=== PATIENT | male | born 1990 | race Caucasian/White ===

== ENCOUNTER 2023-05-08 08:57 | Outpatient (AMB) | payer OTHER, SELFPAY ==
[2023-05-08 08:55] VITALS: BP 130/70; PULSE 94; RESP 20; O2SAT 98
--- NOTE | 2023-05-08 08:55 | A.OFFVISCC_ITS ---
Intake Vital Signs 05/08/23 08:55 BP 130/70 Blood Pressure Location Rt radial Position Sitting Respiration 20 Pulse 94 Pulse Source Pulse Oximeter Pulse Oximetry (%) 98 Intake Visit Reasons: Walk in Allergies No Known Allergies Allergy (Verified 05/08/23 09:42) HPI Walk in HPI Details Patient presents as a walk in for intake and evaluation of alcohol use. He reports being in recovery from alcohol use for 5 years, until November 2022 when he started to drink again. He reports drinking 4-5 nips of fireball daily and occasionally a beer or two Last drink was 2 days ago. Denies any withdrawal sx, aside from anxiety Denies nausea, vomiting, gerd, abdominal pain MCCARTHY Hx: -reports drinking started in high school and progressed into college -denies any other substance use aside fr om marijuana and occasional mushrooms (none recently) -denies any history of treatment, includ ing RACHEL Hx: -therapy weekly - medications prescribed by PCP office -denies any hx of psychiatric admission Social Hx: -working side jobs, while also working a t a [employer] -single -denies any legal issues Medical Hx: -denies any chronic medical issues -engaged in care with PCP Patient reports his goal is to continue abstaining from alcohol He identifies a strong support system and overall knowledge about coping strategies that are helpful to him His anxiety is a major precipitant/trigger to his ongoing alcohol use. Review of Systems Const Reports as per HPI Physical Exam Vital Signs: Last Vital Signs Pulse 94 05/08/23 08:55 Resp 20 05/08/23 08:55 BP 130/70 05/08/23 08:55 Pulse Ox 98 05/08/23 08:55 Const General: cooperative, healthy appearing and anxious Nutritional Appearance: average body habitus Orientation/consciousness: patient oriented x3 Limitations: no limitations Neuro General: patient oriented x3 Psych Appearance: grossly normal Speech and movement: Normal speech and movement present Affect: Anxious affect present and Other affect and mood findings present Attitude: cooperative Assessment & Plan Assessment & Plan (1) Alcohol use disorder, moderate, dependence: Code(s): F10.20 - Alcohol dependence, uncomplicated Plan: * agreeable to starting Naltrexone--25mg X3 days then increase to full tab daily * Gabapentin taper--just given that he has been drinking daily for several months. Reduce risk of seizure and early withdrawal sx management * reviewed indications for both medications, side effects and dosing * patient has upcoming appt with his PCP who has mentioned starting Naltrexone in the past--he will likely continue treatment with her ongoing * encouraged to call office with any questions or concerns * reminded of risk associated with drinking and taking gabapenting in particular Medications: New naltrexone take 1/2 tab daily then increase to one tab daily 50 mg PO DAILY 60 tabs 0RF naltrexone take 1/2 tab daily for 3 days then increase to one tab daily 50 mg PO DAILY 60 tabs 0RF gabapentin 300 mg orally; Day 1: one cap every 8 hours. Day 2: one cap every 12 hours. Day 3: one cap at bedtime 7 caps 0RF Coding Level of Care Code Est Pt Level 4 (80001) Diagnoses Alcohol use disorder, moderate, dependence F10.20
== END 2023-05-08 09:54 | disposition home or self-care (01) ==
PROVIDERS: Visit Provider Nurse Practitioner Psychiatric/Mental Health
DX: F10.20 Alcohol dependence, uncomplicated (principal)
CPT/HCPCS: 99214

== ENCOUNTER → 2023-05-08 08:57 | Outpatient (BNVA) | payer OTHER, SELFPAY | PROVIDERS: Visit Provider Nurse Practitioner Psychiatric/Mental Health ==

== ENCOUNTER 2023-05-14 13:14 | Outpatient (AMB) | payer OTHER, SELFPAY ==
--- NOTE | 2023-05-14 14:32 | A.OFFPSYCH_ITS ---
Intake Intake Visit Reasons: depression Allergies No Known Allergies Allergy (Verified 05/08/23 09:42) HPI- Psychiatric Chief Complaint: depression HPI Narrative: The patient is a 32-year-old single male with a history of chronic dysphoria anxiety who came at the encouragement of family members. This is also coming in the context of alcohol use disorder which accelerated over the past year after a breakup with his girlfriend. The patient was started on naltrexone he was given a gabapentin taper he reportedly had been drinking daily for an extended period of time at the time comes in now he states he had sober for about a week he had been in recovery from alcohol for about 5 years until November 2022. The patient moved in with his mother and stepmother. He had a particularly difficult time after the break up of his girlfriend of 5 years about a year or so ago and he had been sober from alcohol until the break-up. Should also be noted that the patient is a fairly regular user of marijuana on daily basis and works for a [employer] unclear lower. Patient also reports chronic issues completing tasks He complains of occasional panic attacks and some periods of intense sadness and dysphoria difficulty functioning though his current PHQ-9 is an 11 although it is described as very difficult his JESSICA is elevated at 19. It appears that he is girlfriend became quite isolated and depressed during COVID Patient reports chronic difficulties completing tasks he has been Adderall he does feel be somewhat helpful a relatively low dose 10 mg daily. He has had concerns at times that stimulants might contribute to anxiety. He has tapered off of gabapentin. He does go to occasional a meetings and he has been going to psychotherapy for the past 6 months. Patient has most recently been prescribed medication by Alesia Meade physician assistant spa manager in family practice in [place] Past Psychiatric History: Patient reports some chronic problems with anxiety and dysphoria. He states he can become intensely emotional and sensitive to other people's feelings. He had difficulties in school attention comprehension comple ting tasks reading processing issues he did graduate with a safety degree from [employer] His 1st treatment was his year of high school when he had been on fluoxetine secondary to anxiety was not clear if it was helpful Mental Status Exam Mental Status Exam Patient Appearance: Well Grooomed Patient Orientation: Person, Place, Time and Situation Level of Consciousness: Awake and Appropriate Patient Behavior: Appropriate Behavior Comments: Patient did become more anxious and somewhat reactive when discussing issues related to brain functioning and history of learning disabilities and how this may be playing some role Mood Description: Depressed and Apprehensive Affect Description: Appropriate, Constricted and Anxious Patient Cognition Impaired: No Ability to Follow Directions: Good Speech Pattern: Clear Memory Description: Intact Hallucinations: None Delusions: Not Present Thought Process: Intact and Goal Oriented Thought Content: positive for Goal Oriented, positive for Preoccupation, negative for Suicidal Ideation or negative for Homicidal Ideation Depressive Symptoms: Increased Anxiety, Increased Irritability, Hopelessness, Increased Fatigue, Loss of Energy and Difficulty Concentrating Judgement and Insight: Insight judgment seem somewhat variable at 1st engaged later had difficulty when discussing possibility of neuropsych testing was given Amen ADD screen Unclear if any verbal processing difficult Results Reviewed Results Reviewed: No labs presently in chart Assessment and Plan Assessment & Plan (1) Alcohol use disorder, moderate, dependence: Status: Acute Code(s): F10.20 - Alcohol dependence, uncomplicated (2) Generalized anxiety disorder with panic attacks: Status: Acute Code(s): F41.1 - Generalized anxiety disorder; F41.0 - Panic disorder [episodic paroxysm al anxiety] (3) Major depressive disorder, recurrent, moderate: Status: Acute Code(s): F33.1 - Major depressive disorder, recurrent, moderate (4) History of learning disability as a child: Status: Acute Code(s): Z86.59 - Personal history of other mental and behavioral disorders Plan The patient has chronic anxiety in dysphoria worsened over the past year or so. Is unclear at this time the extent of role alcohol has played in the patient's chronic anxiety dysphoria. Would become clear after a period of sobriety. Also unclear what role marijuana is playing in doing that also at this time. He does feel that he has been regrouping to some degree better able to function there is a strong family history of depression and anxiety. In addition to levels of chronic anxiety and dysphoria this is probably been complicated by what appear to be learning disabilities relating to really reading comprehension and math. This probably had some effects on the patient's development he was able to graduate college she does enjoy playing music unclear if has hopeful alcohol use. Patient has difficulties with concentration motivation intermittently he is on low-dose Adderall would strongly urge when the patient is ready to see if he would be willing to do a taper off of marijuana which chronic daily regular use generally has mostly not been shown to be helpful for chronic anxiety and m ay contribute and certainly the potential a difficulty in regards to motivation attention concentration the patient is learning in psychotherapy strategies to manage anxiety. Athletics daily exercise yoga meditation would most likely be very helpful patient is also in a stressful situation living between 2 houses feeling at times like a failure with a long-term relationship that is unclear if it can be rekindled trying get labs from PCP patient given Rene ADD scream which can be helpful in checking different areas of functioning. Neuro psych testing might be helpful in having the patient better understanding how his brain functions to not contribute to step self-esteem issues but to perhaps help with strategies that might improve his life and functioning consider Wellbutrin for augmentation of depression in the context of ADD consider atomoxetine which may also be helpful for depression anxiety and ADD symptoms. Trying get consent to speak to therapist The [employer] headband may also be very helpful for training concentration and meditation practice which would be helpful for both anxiety and attentional issues Availability of any prior psychological testing would be very helpful Follow-up 4 weeks Counseling and coordination of Care Pt. Self Management counselin Step program, Breathing, Sleep hygiene and Behavior activation Medication management counseling: Effectiveness and Side effects Diagnosis and Prognosis Counseling: Accuracy of diagnosis, Impact of diagnosis on life functions, Problematic behaviors secondary to diagnosis and Adequacy of current interventions Details: I spent [60] minutes reviewing the record, seeing the patient and documenting in the medical record. Counseling provided to the patient/caregiver as outlined below. Addressed patient/caregiver concerns regarding current medication regime including effective adherence. Addressed patient/caregiver concerns regarding diagnosis and prognosis including accuracy of diagnosis, prognosis over time, impact of diagnosis. Addressed patient/caregiver concerns regarding impact of recent stressors. [facility] [place] [place] Medical History (Updated 06/03/23 @ 18:19 by Rusty Dye MD) Major depressive disorder, recurrent, moderate Generalized anxiety disorder with panic attacks Social History: The patient's father has a significant history of agoraphobia grandparents had significant issues with substance abuse and depression mother's suffered from depression. The patient does have a sister The patient grew up mostly in [place] was in [place] till 4 years old. His biological father is in [place]. He was raised mostly by his mother and stepmother in [place] he states that this had generally not been a problem for him nor was it highly on usual when he was growing up. The patient was with his girlfriend of 5 years they broke up about a year ago and are looking at potentially reconciling. They do not have any children. 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 [place] he did have a 504 plan in school Substance History: Patient has a significant history of alcoholism would have blackouts and falls started drinking late high school college got sober 5 years ago generally without supportive recovery community he has a regular marijuana smoker up to a few times a day he does not see this as a problem Coding Level of Care Code Psych Diag Eval (87595) Diagnoses Alcohol use disorder, moderate, dependence F10.20 Generalized anxiety disorder with panic attacks F41.1; F41.0 Major depressive disorder, recurrent, moderate F33.1 History of learning disability as a child Z86.59
== END 2023-05-14 15:38 | disposition home or self-care (01) ==
PROVIDERS: PCP Physician Assistant; Visit Provider Psychiatry & Neurology Psychiatry
DX: F10.20 Alcohol dependence, uncomplicated (principal); F41.1 Generalized anxiety disorder; F41.0 Panic disorder [episodic paroxysmal anxiety]; F33.1 Major depressive disorder, recurrent, moderate; Z86.59 Personal history of other mental and behavioral disorders
CPT/HCPCS: 90791

== ENCOUNTER → 2023-05-14 13:14 | Outpatient (BNVA) | payer OTHER, SELFPAY | PROVIDERS: PCP Physician Assistant; Visit Provider Psychiatry & Neurology Psychiatry ==

== ENCOUNTER 2023-07-27 15:22 | Outpatient (AMB) | payer MEDICAID, SELFPAY ==
--- NOTE | 2023-07-27 15:27 | MHC.AM.SUB ---
Intake Visit Reasons: Follow up Allergies No Known Allergies Allergy (Verified 05/08/23 09:42) HPI HPI Follow up: Details: Patient presents for follow up and to re-establish care He states he had been abstaining from alcohol for over 2 months and approx 3 weeks started drinking again He reports drinking approx 5 fireball nips daily Last drink was on Thursday Gabapentin sent in over the weekend by this typewriter assembly and parts inspector which patients reports was helpful with anxiety Prior to staring drinking, he reports that he was attending meetings at least 5 days per week and found them very beneficial He identified ongoing relationship issues as an ongoing stressor and contributed to drinking. Current sx: He reports his last drink was Thursday and while he is feeling clearer each day, his anxiety, racing thoughts and ruminating is at times overwhelming. He is not ruminating on any specific topic, but has difficulty refocusing once he starts Frequent negative self talk, feelings of low self worth increased shame and guilt Decreased appetite Denies thoughts of self harm or suicidal ideation No change to previous medications No changes to medical history Still engaged with his therapist, although he recently missed an appt [facility] Medical History (Updated 06/03/23 @ 18:19 by Rusty Dye MD) Major depressive disorder, recurrent, moderate Generalized anxiety disorder with panic attacks Review of Systems Const Reports as per HPI Physical Exam Const General: cooperative and anxious Nutritional Appearance: thin Orientation/consciousness: patient oriented x3 Limitations: no limitations Neuro General: patient oriented x3 Psych Appearance: well kempt Speech and movement: Clear speech present Affect: Anxious affect present Attitude: cooperative Thought process: Circumstantial thought process present Thought content: Depressive thoughts present Insight: Fair insight present (Psych) Judgement: Good judgement present (Psych) Assessment & Plan Assessment & Plan (1) Major depressive disorder, recurrent, moderate: Code(s): F33.1 - Major depressive disorder, recurrent, moderate Category: Medical Plan: add Abilify 2mg daily --reviewed medication, dosing, side effects and goals of treatment encouraged to call office with any questions or concerns (2) Alcohol use disorder, moderate, dependence: Code(s): F10.20 - Alcohol dependence, uncomplicated Category: Medical Plan: encouraged recovery supports discussed IOP as an option in the near future will restart naltrexone after next visit (3) Generalized anxiety disorder with panic attacks: Code(s): F41.1 - Generalized anxiety disorder; F41.0 - Panic disorder [episodic paroxysmal anxiety] Category: Medical Plan: continue gabapentin PRN as he reports this is helpful discussed deep breathing strategies follow up 2 wks telehealth Medications: New aripiprazole (Abilify) 2 mg PO DAILY 30 tabs 0RF
== END 2023-07-27 16:19 | disposition home or self-care (01) ==
PROVIDERS: PCP Physician Assistant; Visit Provider Nurse Practitioner Psychiatric/Mental Health
DX: F10.20 Alcohol dependence, uncomplicated (principal); F33.1 Major depressive disorder, recurrent, moderate
CPT/HCPCS: 99214

== ENCOUNTER → 2023-07-27 15:22 | Outpatient (BNVA) | payer OTHER, SELFPAY | PROVIDERS: PCP Physician Assistant; Visit Provider Nurse Practitioner Psychiatric/Mental Health | DX: F10.20 Alcohol dependence, uncomplicated (principal); F33.1 Major depressive disorder, recurrent, moderate; F41.1 Generalized anxiety disorder; F43.0 Acute stress reaction | CPT/HCPCS: 99212 ==

== ENCOUNTER 2023-08-12 11:26 | Outpatient (AMB) | payer MEDICAID, SELFPAY ==
--- NOTE | 2023-08-12 11:35 | A.OFFVISCC_ITS ---
Intake Visit Reasons: MAT Tele Allergies No Known Allergies Allergy (Verified 05/08/23 09:42) [facility] MAT Tele: Details: Patient presents for follow up via telehealth Taking Abilify in AM --tolerating dose Intitiallt reporting that he was experiencing irritability and anxiety, however through processing able to accept that some of these feelings were warranted given the situation. He continues to abstain from alcohol (3 weeks) Depression improving, motivation improving played the [employer] recently which he finds therapeutic continues to attend meetings Denies any side effects related to medications Reconnected with his therapist and will be seeing them this week [facility] Medical History (Updated 06/03/23 @ 18:19 by Rusty Dye MD) Major depressive disorder, recurrent, moderate Generalized anxiety disorder with panic attacks Review of Systems Const Reports as per [facility] Telehealth Telehealth Telehealth Platform: Telephone Location of provider rendering services: practice address Location of patient: other Patient Identification confirmed using: Name, : Yes Telehealth method: voice only Patient verbally consented to treatment: Yes Patient verbally consented to billing insurance company: Yes Minutes spent on Phone/Video with Pt.: 35 Assessment & Plan Assessment & Plan (1) Alcohol use disorder, moderate, dependence: Code(s): F10.20 - Alcohol dependence, uncomplicated Category: Medical Plan: * relapse prevention discussion * follow up one month (2) Major depressive disorder, recurrent, moderate: Code(s): F33.1 - Major depressive disorder, recurrent, moderate Category: Medical Plan: * continue medications as prescribed * encouraged to continue with therapist regularly
== END 2023-08-12 12:53 | disposition home or self-care (01) ==
PROVIDERS: PCP Physician Assistant; Visit Provider Nurse Practitioner Psychiatric/Mental Health
DX: F10.20 Alcohol dependence, uncomplicated (principal); F33.1 Major depressive disorder, recurrent, moderate
CPT/HCPCS: 99214

== ENCOUNTER → 2023-08-12 11:26 | Outpatient (BNVA) | payer MEDICAID, SELFPAY | PROVIDERS: PCP Physician Assistant; Visit Provider Nurse Practitioner Psychiatric/Mental Health ==

== ENCOUNTER 2023-09-11 11:47 | Outpatient (AMB) | payer MEDICAID, SELFPAY ==
--- NOTE | 2023-09-11 11:48 | A.OFFVISCC_ITS ---
Intake Visit Reasons: MAT Tele Allergies No Known Allergies Allergy (Verified 05/08/23 09:42) HPI HPI MAT Tele: Details: Patient presents for follow up via telehealth Still working a lot Continues to abstain from drinking attending meetings at least once per week positive outlets-music, woodworking, switched adderall XR to amphetamine ER 10mg -tolerating cravings have decreased, mood improving PFSH Medical History (Updated 06/03/23 @ 18:19 by Rusty Dye MD) Major depressive disorder, recurrent, moderate Generalized anxiety disorder with panic attacks Review of Systems Const Reports as per HPI and Reports no additional complaints Telehealth Telehealth Telehealth Platform: Telephone Location of provider rendering services: practice address Location of patient: other Patient Identification confirmed using: Name, : Yes Telehealth method: voice only Patient verbally consented to treatment: Yes Patient verbally consented to billing insurance company: Yes Minutes spent on Phone/Video with Pt.: 20 Assessment & Plan Assessment & Plan (1) Alcohol use disorder, moderate, dependence: Code(s): F10.20 - Alcohol dependence, uncomplicated Category: Medical Plan: * relapse prevention discussion (2) Major depressive disorder, recurrent, moderate: Code(s): F33.1 - Major depressive disorder, recurrent, moderate Category: Medical Plan: * continue abilify and lexapro at current doses * follow up 4 weeks
== END 2023-09-11 12:49 | disposition home or self-care (01) ==
PROVIDERS: PCP Physician Assistant; Visit Provider Nurse Practitioner Psychiatric/Mental Health
DX: F10.20 Alcohol dependence, uncomplicated (principal); F33.1 Major depressive disorder, recurrent, moderate
CPT/HCPCS: 99214

== ENCOUNTER → 2023-09-11 11:47 | Outpatient (BNVA) | payer MEDICAID, SELFPAY | PROVIDERS: PCP Physician Assistant; Visit Provider Nurse Practitioner Psychiatric/Mental Health ==

== ENCOUNTER 2023-10-09 09:28 | Outpatient (AMB) | payer OTHER, SELFPAY ==
[2023-10-09 09:37] VITALS: BP 120/80; PULSE 88; RESP 19
--- NOTE | 2023-10-09 09:37 | MHC.AM.SUB ---
Vital Signs 10/09/23 09:37 BP 120/80 Blood Pressure Location Lt radial Position Sitting Respiration 19 Pulse 88 Pulse Source Pulse Oximeter Intake Visit Reasons: MAT Visit Allergies No Known Allergies Allergy (Verified 05/08/23 09:42) HPI HPI MAT Visit: Details: Patient presents for follow up Stopped going to meetings then tapered off no meetings for 2-3 weeks increased thoughts of drinking No alcohol for about 3 months ? katie is making him groggy [facility] Medical History (Updated 06/03/23 @ 18:19 by Rusty Dye MD) Major depressive disorder, recurrent, moderate Generalized anxiety disorder with panic attacks Review of Systems Const Reports as per HPI Physical Exam Vital Signs: Last Vital Signs Pulse 88 10/09/23 09:37 Resp 19 10/09/23 09:37 BP 120/80 10/09/23 09:37 Const General: cooperative and anxious Nutritional Appearance: thin Orientation/consciousness: patient oriented x3 Limitations: no limitations Neuro General: patient oriented x3 Psych Appearance: well kempt Speech and movement: Clear speech present Affect: Anxious affect present Attitude: cooperative Thought process: Circumstantial thought process present Thought content: Depressive thoughts present Insight: Fair insight present (Psych) Judgement: Good judgement present (Psych) Assessment & Plan Assessment & Plan (1) Alcohol use disorder, moderate, dependence: Code(s): F10.20 - Alcohol dependence, uncomplicated Category: Medical Plan: relapse prevention discussion will start attending meetings again discussed PRN use of Naltrexone (2) Major depressive disorder, recurrent, moderate: Code(s): F33.1 - Major depressive disorder, recurrent, moderate Category: Medical Plan: trial katie in the evenings if still groggy, will take a break and see how he feels follow up 4 weeks Medications: Refilled aripiprazole 2 mg PO DAILY 30 tabs 0RF
== END 2023-10-09 10:20 | disposition home or self-care (01) ==
PROVIDERS: PCP Physician Assistant; Visit Provider Nurse Practitioner Psychiatric/Mental Health
DX: F10.20 Alcohol dependence, uncomplicated (principal); F33.1 Major depressive disorder, recurrent, moderate
CPT/HCPCS: 99214

== ENCOUNTER → 2023-10-09 09:28 | Outpatient (BNVA) | payer OTHER, SELFPAY | PROVIDERS: PCP Physician Assistant; Visit Provider Nurse Practitioner Psychiatric/Mental Health | DX: F10.20 Alcohol dependence, uncomplicated (principal); F33.1 Major depressive disorder, recurrent, moderate | CPT/HCPCS: 99212 ==

== ENCOUNTER 2023-11-06 11:30 | Outpatient (AMB) | payer OTHER, SELFPAY ==
--- NOTE | 2023-11-06 14:36 | MHC.AM.SUB ---
Intake Visit Reasons: MAT Tele Allergies No Known Allergies Allergy (Verified 05/08/23 09:42) [facility] MAT Tele: Details: Patient presents for follow up via telehealth Reporting a challenging month. Struggling with increased thoughts of drinking and feeling like he is coming close to doing it Discussed mood --some improvement as he restarted Abilify and has been taking it consistently Would like a therapist --feels he has a lot he wants to work through and feels ready to engage. Frustration that he continues to feel the way he is related to alcohol Avoiding meetings--discussed Naltrexone and how it may be beneficial for the time being, patient agreeable. He has had it, but has not been taking it [facility] Medical History (Updated 06/03/23 @ 18:19 by Rusty Dye MD) Major depressive disorder, recurrent, moderate Generalized anxiety disorder with panic attacks Review of Systems Const Reports as per [facility] Telehealth Telehealth Telehealth Platform: Telephone Location of provider rendering services: practice address Location of patient: address on file Patient Identification confirmed using: Name, : Yes Telehealth method: voice only Patient verbally consented to treatment: Yes Patient verbally consented to billing insurance company: Yes Minutes spent on Phone/Video with Pt.: 30 Assessment & Plan Assessment & Plan (1) Alcohol use disorder, moderate, dependence: Code(s): F10.20 - Alcohol dependence, uncomplicated Category: Medical Plan: restart naltrexone relapse prevention discussion (2) Major depressive disorder, recurrent, moderate: Code(s): F33.1 - Major depressive disorder, recurrent, moderate Category: Medical Plan: continue medications therapy referral Medications: Changed From naltrexone take 1/2 tab daily for 3 days then increase to one tab daily 50 mg PO DAILY 60 tabs 0RF To naltrexone 50 mg PO DAILY 90 tabs 1RF
== END 2023-11-06 13:31 | disposition home or self-care (01) ==
PROVIDERS: PCP Physician Assistant; Visit Provider Nurse Practitioner Psychiatric/Mental Health
DX: F10.20 Alcohol dependence, uncomplicated (principal); F33.1 Major depressive disorder, recurrent, moderate
CPT/HCPCS: 99214

== ENCOUNTER → 2023-11-06 11:30 | Outpatient (BNVA) | payer OTHER, SELFPAY | PROVIDERS: PCP Physician Assistant; Visit Provider Nurse Practitioner Psychiatric/Mental Health ==

== ENCOUNTER 2023-12-04 09:04 | Outpatient (AMB) | payer OTHER, SELFPAY ==
--- NOTE | 2023-12-04 09:04 | A.OFFVISCC_ITS ---
Intake Visit Reasons: MAT Tele Allergies No Known Allergies Allergy (Verified 05/08/23 09:42) [facility] MAT Tele: Details: Patient presents for follow up via telehealth Reports mood is improved since last visit has reached out to therapist discussed medications, feels escitalopram is effective notices that he feels worse when he does not take it discussed other options--adjunct Wellbutrin patient agreeable [facility] Medical History (Updated 06/03/23 @ 18:19 by Rusty Dye MD) Major depressive disorder, recurrent, moderate Generalized anxiety disorder with panic attacks Review of Systems Const Reports as per [facility] Telehealth Telehealth Telehealth Platform: Telephone Location of provider rendering services: practice address Location of patient: other Patient Identification confirmed using: Name, : Yes Telehealth method: voice only Patient verbally consented to treatment: Yes Patient verbally consented to billing insurance company: Yes Minutes spent on Phone/Video with Pt.: 35 Assessment & Plan Assessment & Plan (1) Alcohol use disorder, moderate, dependence: Code(s): F10.20 - Alcohol dependence, uncomplicated Category: Medical Plan: * relapse prevention discussion (2) Major depressive disorder, recurrent, moderate: Code(s): F33.1 - Major depressive disorder, recurrent, moderate Category: Medical Plan: * continue lexapro * add wellbutrin 150mg QD--reviewed medication goals, dosing and side effects * follow up 2 weeks Medications: New bupropion HCl XL (Wellbutrin XL) 150 mg PO QAM 30 tabs 0RF Discontinued aripiprazole Discontinued Reason: Patient no longer taking 2 mg PO DAILY 30 tabs 0RF
== END 2023-12-04 09:39 | disposition home or self-care (01) ==
PROVIDERS: PCP Physician Assistant; Visit Provider Nurse Practitioner Psychiatric/Mental Health
DX: F10.20 Alcohol dependence, uncomplicated (principal); F33.1 Major depressive disorder, recurrent, moderate
CPT/HCPCS: 99214

== ENCOUNTER → 2023-12-04 09:04 | Outpatient (BNVA) | payer OTHER, SELFPAY | PROVIDERS: PCP Physician Assistant; Visit Provider Nurse Practitioner Psychiatric/Mental Health ==

== ENCOUNTER 2023-12-30 09:04 | Outpatient (AMB) | payer OTHER, SELFPAY ==
--- NOTE | 2023-12-30 09:07 | MHC.AM.SUB ---
Intake Visit Reasons: MAT Tele Allergies No Known Allergies Allergy (Verified 05/08/23 09:42) [facility] MAT Tele: Details: Patient presents for follow up via telehealth for AUD and depression Reports an up and down month --splitting from GF Trialled Wellbutrin for one day, did not like the way it felt Started seeing therapist --happy about this Reporting more routine, eating meals Reporting decreased motivation after work --discussed light therapy jeffrey with less sunshine Re: alcohol use, continues to abstain. Not yet attending meetings like he would like, but continues to be a goal for him Review of Systems Const Reports as per [facility] Telehealth Telehealth Telehealth Platform: Telephone Location of provider rendering services: practice address Location of patient: address on file Patient Identification confirmed using: Name, : Yes Telehealth method: voice only Patient verbally consented to treatment: Yes Patient verbally consented to billing insurance company: Yes Minutes spent on Phone/Video with Pt.: 20 Assessment & Plan Assessment & Plan (1) Alcohol use disorder, moderate, dependence: Code(s): F10.20 - Alcohol dependence, uncomplicated Category: Medical Plan: relapse prevention discussion (2) Major depressive disorder, recurrent, moderate: Code(s): F33.1 - Major depressive disorder, recurrent, moderate Category: Medical Plan: hold on any other trials--agreeable to evaluating mood with regular therapy Medications: Discontinued bupropion HCl XL (Wellbutrin XL) Discontinued Reason: Patient no longer taking 150 mg PO QAM 30 tabs 0RF
== END 2023-12-30 10:23 | disposition home or self-care (01) ==
LOC: HO.HCC 09:04
PROVIDERS: PCP Physician Assistant; Visit Provider Nurse Practitioner Psychiatric/Mental Health
DX: F10.20 Alcohol dependence, uncomplicated (principal); F33.1 Major depressive disorder, recurrent, moderate
CPT/HCPCS: 99214

== ENCOUNTER 2024-02-01 12:57 | Outpatient (AMB) | payer OTHER, SELFPAY ==
--- NOTE | 2024-02-01 12:58 | MHC.AM.SUB ---
Intake Visit Reasons: MAT Tele Allergies No Known Allergies Allergy (Verified 05/08/23 09:42) HPI HPI MAT Tele: Details: Patient presents for AUD follow up via telehealth Reports he has been seeing therapist once per week and has been finding this helpful Reports that he has not been smoking cannabis for the last month Feels mood has been more level less up and down --less reactive Thinking about ex has been a trigger at times--has been able to move past this 6 months of no alcohol Attending AA meetings occasionally Still some stresses with work in terms of being paid in a timely fashion Review of Systems Const Reports as per HPI and Reports difficulty sleeping (at times ) Telehealth Telehealth Telehealth Platform: Telephone Location of provider rendering services: practice address Location of patient: other Patient Identification confirmed using: Name, : Yes Telehealth method: voice only Patient verbally consented to treatment: Yes Patient verbally consented to billing insurance company: Yes Minutes spent on Phone/Video with Pt.: 20 Assessment & Plan Assessment & Plan (1) Alcohol use disorder, moderate, dependence: Code(s): F10.20 - Alcohol dependence, uncomplicated Category: Medical Plan: relapse prevention discussion (2) Major depressive disorder, recurrent, moderate: Code(s): F33.1 - Major depressive disorder, recurrent, moderate Category: Medical Plan: therapy in place follow up 4 weeks [facility] Medical History (Updated 06/03/23 @ 18:19 by Rusty Dye MD) Major depressive disorder, recurrent, moderate Generalized anxiety disorder with panic attacks Social History: The patient's father has a significant history of agoraphobia grandparents had significant issues with substance abuse and depression mother's suffered from depression. The patient does have a sister The patient grew up mostly in [place] was in [place] till 4 years old. His biological father is in [place]. He was raised mostly by his mother and stepmother in [place] he states that this had generally not been a problem for him nor was it highly on usual when he was growing up. The patient was with his girlfriend of 5 years they broke up about a year ago and are looking at potentially reconciling. They do not have any children. 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
== END 2024-02-01 16:30 | disposition home or self-care (01) ==
PROVIDERS: PCP Physician Assistant; Visit Provider Nurse Practitioner Psychiatric/Mental Health
DX: F10.20 Alcohol dependence, uncomplicated (principal); F33.1 Major depressive disorder, recurrent, moderate
CPT/HCPCS: 99213

== ENCOUNTER → 2024-02-01 12:57 | Outpatient (BNVA) | payer OTHER, SELFPAY | PROVIDERS: PCP Physician Assistant; Visit Provider Nurse Practitioner Psychiatric/Mental Health ==

== ENCOUNTER 2024-04-25 13:08 | Outpatient (AMB) | payer OTHER, SELFPAY ==
--- NOTE | 2024-04-25 13:09 | A.OFFVISCC_ITS ---
Intake Visit Reasons: MAT Tele Allergies No Known Allergies Allergy (Verified 05/08/23 09:42) [facility] HPI MAT Tele: Details: Patient presents for follow up via telehealth for AUD Reports he continues to engage in snowboarding and meetings, but has noted a decrease in both over the last few weeks Earned 8 month coin last week at AA Continues to engage in therapy weekly and still finding it helpful Trying to establish routine again Sleep good Appetite good Review of Systems Const Reports as per HPI Telehealth Telehealth Telehealth Platform: Telephone Location of provider rendering services: practice address Location of patient: other Patient Identification confirmed using: Name, : Yes Telehealth method: voice only Patient verbally consented to treatment: Yes Patient verbally consented to billing insurance company: Yes Minutes spent on Phone/Video with Pt.: 15 [facility] Medical History (Updated 04/25/24 @ 13:19 by Tova Peres CNP) Major depressive disorder, recurrent, moderate Generalized anxiety disorder with panic attacks Social History: The patient's father has a significant history of agoraphobia grandparents had significant issues with substance abuse and depression mother's suffered from depression. The patient does have a sister The patient grew up mostly in [place] was in [place] till 4 years old. His biological father is in [place]. He was raised mostly by his mother and stepmother in [place] he states that this had generally not been a problem for him nor was it highly on usual when he was growing up. The patient was with his girlfriend of 5 years they broke up about a year ago and are looking at potentially reconciling. They do not have any children. 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 [place] he did have a 504 plan in school Substance History: Patient has a significant history of alcoholism would have blackouts and falls started drinking late high school college got sober 5 years ago generally without supportive recovery community he has a regular marijuana smoker up to a few times a day he does not see this as a problem Assessment & Plan Assessment & Plan (1) Alcohol use disorder, moderate, in early remission: Code(s): F10.21 - Alcohol dependence, in remission Category: Medical Plan: * relapse prevention discussion * follow up 6 weeks in office (2) Major depressive disorder, recurrent, moderate: Code(s): F33.1 - Major depressive disorder, recurrent, moderate Category: Medical Plan: * continue therapy
== END 2024-04-25 13:28 | disposition home or self-care (01) ==
PROVIDERS: PCP Physician Assistant; Visit Provider Nurse Practitioner Psychiatric/Mental Health
DX: F10.21 Alcohol dependence, in remission (principal); F33.1 Major depressive disorder, recurrent, moderate
CPT/HCPCS: 99213

== ENCOUNTER → 2024-04-25 13:08 | Outpatient (BNVA) | payer OTHER, SELFPAY | PROVIDERS: PCP Physician Assistant; Visit Provider Nurse Practitioner Psychiatric/Mental Health | DX: F10.21 Alcohol dependence, in remission (principal); F33.1 Major depressive disorder, recurrent, moderate | CPT/HCPCS: 99212 ==

== ENCOUNTER 2024-06-06 15:27 | Outpatient (AMB) | payer OTHER, SELFPAY ==
--- NOTE | 2024-06-06 15:39 | MHC.OFFVIS ---
Intake Visit Reasons: MAT Office Allergies No Known Allergies Allergy (Verified 05/08/23 09:42) [facility] Medical History (Updated 04/25/24 @ 13:19 by Tova Peres CNP) Major depressive disorder, recurrent, moderate Generalized anxiety disorder with panic attacks Coding
--- NOTE | 2024-06-06 15:40 | MHC.OFFVIS ---
Vital Signs 06/06/24 15:43 Height 5 ft 8 in Weight 134 lb BMI 20.4 Pulse 97 Pulse Source Pulse Oximeter Pulse Oximetry (%) 99 Oxygen Delivery Method Room Air Intake Visit Reasons: MAT Office Allergies No Known Allergies Allergy (Verified 06/06/24 15:43) HPI HPI MAT Office: Details: He has AUD and has benefitted from 100 mg gabapentin for sleep. He has no complaints and is now sober for 10 months. He has been doing snowboading winter. [facility] Medical History Major depressive disorder, recurrent, moderate Generalized anxiety disorder with panic attacks Physical Exam Vital Signs: Last Vital Signs Pulse 97 06/06/24 15:43 Pulse Ox 99 06/06/24 15:43 Oxygen Delivery Method Room Air 06/06/24 15:43 BMI result Body Mass Index 20.4 Const General: cooperative Results AMB 14 Panel Urine Drug Screen Urine Marijuana (THC) Positive Last Edit by Lester Patel CMA on 06/06/24 15:54 Urine Cocaine Negative Last Edit by Lester Patel CMA on 06/06/24 15:54 Urine Morphine Negative Last Edit by Lester Patel CMA on 06/06/24 15:54 Urine Methamphetamine Negative Last Edit by Lester Patel CMA on 06/06/24 15:54 Urine Amphetamine Negative Last Edit by Lester Patel CMA on 06/06/24 15:54 Urine Benzodiazepine Negative Last Edit by Lester Patel CMA on 06/06/24 15:54 Urine Barbiturates Negative Last Edit by Lester Patel CMA on 06/06/24 15:54 Urine Methadone Negative Last Edit by Lester Patel CMA on 06/06/24 15:54 Urine Buprenorphine Negative Last Edit by Lester Patel CMA on 06/06/24 15:54 Urine Tricyclic Antidepressant Negative Last Edit by Lester Patel CMA on 06/06/24 15:54 Urine MDMA Negative Last Edit by Lester Patel CMA on 06/06/24 15:54 Urine Oxycodone Negative Last Edit by Lester Patel CMA on 06/06/24 15:54 Urine Phencyclidine Negative Last Edit by Lester Patel CMA on 06/06/24 15:54 Urine Propoxyphene Negative Last Edit by Lester Patel CMA on 06/06/24 15:54 Results Reviewed Results Reviewed: Laboratory Last Values POC Urine Buprenorphine Negative 06/06/24 15:42 POC Urine Morphine Negative 06/06/24 15:42 POC Urine Oxycodone Negative 06/06/24 15:42 POC Urine Methadone Negative 06/06/24 15:42 POC Urine Propoxyphene Negative 06/06/24 15:42 POC Urine Barbiturates Negative 06/06/24 15:42 POC U Tricyclic Antidpr Negative 06/06/24 15:42 POC Urine PCP Negative 06/06/24 15:42 POC Ur Amphetamines Negative 06/06/24 15:42 POC Ur Methamphetamine Negative 06/06/24 15:42 POC Urine MDMA Negative 06/06/24 15:42 POC Ur Benzodiazepine Negative 06/06/24 15:42 POC Urine Cocaine Negative 06/06/24 15:42 POC Ur Marijuana (THC) Positive 06/06/24 15:42 Assessment & Plan Assessment & Plan (1) Alcohol use disorder, moderate, in early remission: Comment: He may have some depression at times. Code(s): F10.21 - Alcohol dependence, in remission Category: Medical Plan: Continue gabapentin 100 mg at bedtime prn need. Return two months televisit. Orders: Orders AMB 14 Panel Urine Drug Screen Today Z51.81 - Encounter for therapeutic drug level monitoring Medications: New gabapentin 100 mg PO BEDTIME 30 caps 1RF Coding Level of Care Code Est Pt Level 3 (36938) Diagnoses Alcohol use disorder, moderate, in early remission F10.21
[2024-06-06 15:43] VITALS: PULSE 97; O2SAT 99; BMI 20.4
== END 2024-06-06 16:15 | disposition home or self-care (01) ==
LOC: HO.HCC 15:27
PROVIDERS: PCP Physician Assistant; Visit Provider Internal Medicine
DX: Z51.81 Encounter for therapeutic drug level monitoring (principal); F10.21 Alcohol dependence, in remission
CPT/HCPCS: 99213

== ENCOUNTER → 2024-06-06 15:27 | Outpatient (BNVA) | payer OTHER, SELFPAY | PROVIDERS: PCP Physician Assistant; Visit Provider Internal Medicine | DX: F10.21 Alcohol dependence, in remission (principal); Z51.81 Encounter for therapeutic drug level monitoring; Z79.899 Other long term (current) drug therapy | CPT/HCPCS: 80307; 99212 ==